=== PATIENT | female | born 1995 | race Caucasian/White ===

== ENCOUNTER 2023-12-30 09:23 | Outpatient (AMB) | payer OTHER, SELFPAY ==
--- NOTE | 2023-12-30 10:28 | MHC.OFFWIV ---
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 She reports symptoms of chest congestion, headache, sinus tenderness, x3 days. Patient has tried [id number] Tylenol with mild effect. Denies sick contacts. Patient denies chest pain, shortness a breath, vomiting and diarrhea. PFSH Social History Patient Tobacco Use Status: Never used Tobacco Review of Systems Const All systems reviewed & are unremarkable except as noted in HPI and below Denies chills, Denies fever(s) and Denies headache(s) Eyes Denies blurry vision and Denies eye discharge ENT Denies dizziness, Denies headache(s), Reports sinus pressure and Reports sore throat Card Denies chest pain and Denies dyspnea Resp Reports cough and Denies dyspnea GI Denies diarrhea, Denies nausea and Denies vomiting Neuro Denies dizziness and Denies headache(s) Physical Exam Vital Signs: Last Vital Signs Temp 98.5 F 12/30/23 10:29 Pulse 99 12/30/23 10:29 BP 112/70 12/30/23 10:29 Pulse Ox 97 12/30/23 10:29 Oxygen Delivery Method Room Air 12/30/23 10:29 BMI result Body Mass Index 24.2 Vital signs reviewed stable. Const Other: Appearance: Alert.? Oriented X3.? No acute distress.? Head: Normocephalic. Eyes: Sclera white. ENT: Pharynx erythema. No tonsillar exudates. TM intact and pearly pena. ? Neck: Normal inspection.? Neck supple.?Full ROM. CVS: Normal heart rate and rhythm.? Pulses normal.? Respiratory: No respiratory distress.? Breath sounds normal.? Neuro: Oriented X 3.? Assessment & Plan Assessment & Plan (1) Upper respiratory infection: Comment: Will call patient with URI swab results. Patient given prednisone, has been educated she can also utilize [id number] medicine like Mucinex. Should stay hydrated. Patient has been educated on signs of worsening symptoms when to return to the walk-in or when to present to the ED Code(s): J06.9 - Acute upper respiratory infection, unspecified Qualifiers: URI type: unspecified URI Qualified Code(s): J06.9 - Acute upper respiratory infection, unspecified Plan: Will follow-up with URI swab results Plan Follow-up with PCP Orders: Orders SARS-CoV2/FLU/RSV Today J06.9 - Acute upper respiratory infection, unspecified Medications: New prednisone 40 mg (2 x 20 mg) PO DAILY 10 tabs 0RF Coding Level of Care Code Est Pt Level 3 (29314) Diagnoses Upper respiratory tract infection, unspecified type J06.9 URI type: unspecified URI Time Spent (min) 23
[2023-12-30 10:29] VITALS: BP 112/70; PULSE 99; TEMP 36.9; O2SAT 97; BMI 24.2
== END 2023-12-30 11:00 | disposition home or self-care (01) ==
PROVIDERS: PCP Internal Medicine; Visit Provider Nurse Practitioner Primary Care
DX: J06.9 Acute upper respiratory infection, unspecified (principal)
CPT/HCPCS: 99213

== ENCOUNTER 2023-12-30 13:25 | Outpatient (REF) | payer OTHER, SELFPAY ==
[2023-12-30 14:40] LABS: Influenza A PCR NEGATIVE (Negative); Influenza B PCR NEGATIVE (Negative); Resp Syncy Virus RNA Qual PCR NEGATIVE (Negative); SARS COV2 PCR INHOUSE POSITIVE (Negative)
== END 2023-12-30 13:26 | disposition home or self-care (01) ==
LOC: HO.LNP 13:25
PROVIDERS: Visit Provider Nurse Practitioner Primary Care
DX: J06.9 Acute upper respiratory infection, unspecified (principal)
CPT/HCPCS: 0241U